=== PATIENT | male | born 1980 | race Caucasian/White ===

== ENCOUNTER → 2019-08-28 | Outpatient (CLI) | payer BC ==
[~2019-08-28] MED LIST: ALB0.5V INH; AZIT-21 PO; CLON1TAB36 PO; HYDR480S10 PO; METH4TAB PO; OXYC10TA7 PO; OXYC80TA39 PO; [UNRECOGNIZED DRUG - CODE] PO
--- NOTE | 2019-08-28 18:38 | Diagnostic Imaging Report ---
PROCEDURE: MR imaging cervical spine without contrast. TECHNIQUE: Multiplanar, multisequence MR imaging of the cervical spine was performed without contrast. INDICATION: Neck and right shoulder pain, occasional right arm numbness. COMPARISON STUDY: MRI of the cervical spine from 2014. FINDINGS: Noncontrast MRI of the cervical spine demonstrate normal signal intensity in the brainstem and spinal cord. Surrounding soft tissues appear normal. No fractures or subluxations are present. Multilevel spondylosis is again identified. The C2-C3 level demonstrates a mild uncovertebral joint hypertrophy on the left with mild facet arthropathy on the left. Mild left foraminal stenosis is stable. The C3-C4 level demonstrates broad-based disc bulge with osteophytic ridging. Mild facet arthropathy is present. Mild/moderate spinal stenosis present. Moderate to severe foraminal stenosis stable. This little worse on the right than the left. C4-C5 level demonstrates mild to moderate broad-based disc bulge with mild facet arthropathy and some osteophytic ridging. Moderate spinal stenosis stable. Moderate to severe foraminal stenosis is present. This is a little worse than that seen at C3-C4. C5-C6 level demonstrates minimal facet arthropathy. There is mild narrowing of the left neural foramina. C6-C7 level demonstrates mild facet arthropathy. There has been development of mild disc bulge and uncovertebral joint hypertrophy with mild to moderate central stenosis and moderate right foraminal stenosis. C7-T1 level appears normal. IMPRESSION: MRI of the cervical spine demonstrates interval worsening of some stenosis at C6-C7 level. The remainder of the spine appears stable. Dictated by: Dictated on workstation # [id number]
== END ==
LOC: RAD 17:37
PROVIDERS: ATTEND Anesthesiology
DX: G89.4 Chronic pain syndrome (principal); M47.812 Spondylosis without myelopathy or radiculopathy, cervical region; M50.10 Cervical disc disorder with radiculopathy, unspecified cervical region; M48.02 Spinal stenosis, cervical region
CPT/HCPCS: 72141

== ENCOUNTER 2019-12-24 05:47 | Outpatient (CLI) | payer BC ==
[~2019-12-24] VITALS: Ht 182.9 cm; Wt 97.7 kg
[2019-12-24] MEDS ORDERED: OXYC10TA7 PO (15:41)
== END 2019-12-24 15:37 | disposition home or self-care (01) ==
LOC: PREOP 05:47
PROVIDERS: ATTEND Surgery
DX: Z01.818 Encounter for other preprocedural examination (principal)

== ENCOUNTER 2020-01-01 06:41 | Day surgery (SDC) | payer BC ==
[2020-01-01] VITALS (7 sets, daily range): BP systolic 104–124; BP diastolic 64–86
[~2020-01-01] VITALS: Ht 182.9 cm; Wt 97.7 kg
[2020-01-01] MEDS ORDERED: MIDAZOLAM 2 MG/2 ML (VERSED) VIAL ONE (06:59)
[2020-01-01] MEDS ORDERED: fentaNYL INJECTION 100 MCG/2 ML AMP ONE ×2 (06:59→07:22)
[2020-01-01] MEDS ORDERED: proPOfol 200 MG/20 ML (DIPRIVAN) VIAL IV ONE (07:03)
[2020-01-01] MEDS ORDERED: DEXAMETHASONE 10 MG/ML (DECADRON) 1 ML VIAL ONE (07:03)
[2020-01-01] MEDS ORDERED: ONDANSETRON 4 MG/2 ML (SDV) Z0FRAN ONE (07:03)
[2020-01-01] MEDS ORDERED: SEVOFLURANE (ULTANE) 15 ML INHAL SOLN ONE ×3 (07:03→08:36)
[2020-01-01] MEDS ORDERED: LIDOCAINE PF 2% 5 ML (XYLOCAINE) VIAL ONE (07:03)
[2020-01-01] MEDS ORDERED: BUP/EPI 0.5% 1:200,000 (SENSORCAINE) 30 ML VIAL ONE (07:18)
[2020-01-01] MEDS ORDERED: ceFAZolin 2 GM IV Premixed 50 ML ONE (07:22)
[2020-01-01] MEDS ORDERED: LACTATED RINGERS 1,000 ML IV PRN (07:25)
[2020-01-01] MEDS ORDERED: fentaNYL INJECTION 100 MCG/2 ML AMP IV ONE (07:30)
[2020-01-01] MEDS ORDERED: ceFAZolin 2 GM/50 ML NS 50 ML IV ONE (07:30)
[2020-01-01] MEDS ORDERED: ceFAZolin 2 GM IV Premixed 50 ML IV ONE (07:45)
--- NOTE | 2020-01-01 07:58 | Progress Note-Pre Operative ---
Pre-Operative Progress Note H&P Reviewed The H&P was reviewed, patient examined and no changes noted. Date Seen by Provider: Jan 01, 2020 Time Seen by Provider: 07:57 Date H&P Reviewed: Jan 01, 2020 Time H&P Reviewed: 07:57 Pre-Operative Diagnosis: blood in stool, hemorrhoids NITHYA AGUERO DO Jan 01, 2020 07:58
[2020-01-01] MEDS ORDERED: PROMETHAZINE INJ 25 MG/ML (PHENERGAN) AMP IVP ONE (08:45)
[2020-01-01] MEDS ORDERED: HYDROmorphone 2 MG/ML VIAL (DILAUDID) IV ONE (08:45)
[2020-01-01] MEDS ORDERED: morphine INJ 10 MG/ML 1ML (SYR OR VIAL) IVP ONE (08:45)
[2020-01-01] MEDS ORDERED: MEPERIDINE (DEMEROL) INJ 50 MG/ML IVP ONE (08:45)
[2020-01-01] MEDS ORDERED: ONDANSETRON 4 MG/2 ML (SDV) Z0FRAN IVP PRN (08:45)
[2020-01-01] MEDS ORDERED: morphine INJ 10 MG/ML 1ML (SYR OR VIAL) ONE (08:46)
--- NOTE | 2020-01-01 09:15 | Anesthesia-General Post-Op ---
General Patient Condition Mental Status/LOC: Same as Preop Cardiovascular: Satisfactory Nausea/Vomiting: Absent Respiratory: Satisfactory Pain: Controlled Complications: Absent Post Op Complications Complications None Follow Up Care/Instructions Patient Instructions None needed. Anesthesia/Patient Condition Patient Condition Patient is doing well, no complaints, stable vital signs, no apparent adverse anesthesia problems. No complications reported per nursing. SYLVIA HENSON CRNA Jan 01, 2020 09:15
--- NOTE | 2020-01-01 09:24 | Progress Note-Post Operative ---
Post-Operative Progess Note Surgeon (s)/Release And Technical Records Clerk (s) Surgeon NITHYA AGUERO DO Release And Technical Records Clerk: na Pre-Operative Diagnosis blood in stool, hemorrhoids Post-Operative Diagnosis left lateral hemorrhoid Procedure & Operative Findings Date of Procedure 01/01/20 Procedure Performed/Findings flex sig and left lateral hemorroidectomy Anesthesia Type gen Estimated Blood Loss Estimated blood loss (mL): min Specimens/Packing Specimens Removed left lateral hemorrhoid NITHYA AGUERO DO Jan 01, 2020 09:24
[2020-01-01] MEDS ORDERED: DOCU-143 PO (09:25)
--- NOTE | 2020-01-01 09:26 | Discharge Inst-Simple/Standard ---
Discharge Inst-Standard Discharge Medications New, Converted or Re-Newed RX: Transmitted to Pharmacy Patient Instructions/Follow Up Plan of Care/Instructions/FU: 2 weeks Theresa Activity as Tolerated: No Discharge Diet: Regular Diet Other Inst to Patient Follow up Appt: Make appointment for 2 week. Instructions: No lifting greater than 10 pounds. No strenuous activity. May shower in 24 hours, no tub bath or soaking. Use incentive spirometer at home as directed. No Smoking Skin/Wound Care: Sitz bath 3 times a day and after bowel movements. Keep the areas clean and dry. Symptoms to Report: Appetite Changes, Extremity Discoloration, Numbness/Tingling, Swelling Incr eased, Bleeding Excessive, Eyesight Changes, Pain Increased, Urine Color Change, Constipation(Persistent), Fever over 101 degree F, Pain/Pressure in chest, Urinating Difficulty, Cough Up/Vomit Blood, Heart Beat Irreg/Pounding, Pain/Pressure in jaw, Vaginal Bleeding Increase, Cramps in feet or legs, Lightheadedness, Pain/Pressure in shoulder, Diarrhea(Persistent), Memory Changes Suddenly, Questions/Concerns, Weight gain consecutive days, Dizziness/Fainting, Nausea/Vomiting, Shortness of Breath, Weight gain over 2 pounds If questions or concerns contact your physician Or seek help at emergency department. NITHYA AGUERO DO Jan 01, 2020 09:26
--- NOTE | 2020-01-03 15:05 | OPERATIVE REPORT ---
DATE OF SERVICE: 01/01/2020 PREOPERATIVE DIAGNOSIS: Blood in stool. POSTOPERATIVE DIAGNOSIS: Left lateral hemorrhoid, internal. PROCEDURE: Flexible sigmoidoscopy, left lateral hemorrhoidectomy. SURGEON: Nithya Cardenas DO ANESTHESIA: General. ESTIMATED BLOOD LOSS: Minimal. COMPLICATIONS: None. INDICATIONS: The patient is a 39-year-old male with a longstanding history of chronic constipation and some blood in stool. He understands risks and benefits of procedure and wished to proceed with procedure. Consent was signed in the chart. DESCRIPTION OF PROCEDURE: The patient was taken to the operating suite, placed in lithotomy position. Timeout was performed. Digital rectal exam was performed noting left lateral hemorrhoid, slight irritation. The colonoscope was inserted in the rectum up through a sigmoid colon and then the scope was then slowly retracted. The prep was adequate. There were no polyps, masses or ulcerations within the sigmoid and rectum, scope was retroflexed noting no other pathology except for a hemorrhoidal tissue. Scope was returned to its normal position, slowly withdrawn until completely removed. At this time, the left lateral hemorrhoid was grasped and slightly retracted and a Harmonic focus was then used to excise the left lateral hemorrhoid complex. Hemostasis was achieved. Local anesthetic was infiltrated in the surrounding tissues and a Gelfoam and Vaseline gauze plug was created to assist with hemostasis and inserted into the anal canal. The patient tolerated procedure well without any complications. He was taken to recovery room in stable condition. Job ID: [id number] DocumentID: [id number] Dictated Date: 01/03/2020 11:42:38 Patent Agent Date: 01/03/2020 15:04:53 Dictated By: NITHYA CARDENAS DO
== END 2020-01-01 10:20 | disposition home or self-care (01) ==
LOC: SDC 06:41
PROVIDERS: ATTEND Surgery
DX: K64.8 Other hemorrhoids (principal); M25.511 Pain in right shoulder; M25.512 Pain in left shoulder; G89.29 Other chronic pain; F32.9 Major depressive disorder, single episode, unspecified; G40.909 Epilepsy, unspecified, not intractable, without status epilepticus; F41.9 Anxiety disorder, unspecified; M10.9 Gout, unspecified; M50.30 Other cervical disc degeneration, unspecified cervical region; Z87.891 Personal history of nicotine dependence; Z79.899 Other long term (current) drug therapy
CPT/HCPCS: 87081

== ENCOUNTER 2023-06-12 14:52 | Emergency (ER) | payer OTHER, BC ==
[~2023-06-12] VITALS: Ht 182 cm; Wt 84.0 kg
[~2023-06-12 14:52] MED LIST changes: +DOCU-143 PO
[2023-06-12] MEDS ORDERED: NS IV 1000 ML 1,000 ML IV STA (15:05)
--- NOTE | 2023-06-12 15:11 | ED General ---
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 PT STATES ALSO LOST EARBUD. PT MAIL TRUCK PARKED NO WHERE NEAR WHERE IT SUPPOSE TO BE. PT FSBS 167 FOR EMS. PT WAS CONFUSED WHEN WENT INTO [facility] WHERE EMS WAS DISPATCHED. PT TALKING VERY FAST. PT HAS IV NS INFUSING IN L AC #18 BY EMS. APPROX 800CC INFUSED. PT STATES HAS CHRONIC PAIN IN R SHOULDER. 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 Patient states over the past few days he has had some increased weakness. States yesterday he attempted to drink near 2 gallons of water. States he felt bloated. Ate some candy yesterday and vomited. Started feeling weak and fatigued yesterday with some leg cramping. Patient felt a little better today but was still somewhat weak and fatigued. Patient states he lost his vehicle on route and ended up showing up at [facility] complaining that he was overheated. Patient did not have shoes on his feet at that time. He is unclear when he lost his shoes. He states with his history of ADHD he tries ways to keep his mind from "wandering". He is unclear how lost his shoes as he was trying to stay on task. According to EMS patient appeared to be confused and altered and looked diaphoretic. Patient cannot recall where his truck was parked when he showed up at [facility]. Patient did receive a liter fluid by EMS. On arrival alert and orient x4. Patient reports chronic pain in his shoulders. Started Adderall 5 days ago but has not taken the medication over the past few days. Reports some decreased urine output. Has been drinking water today and at bedside. Patient denies headache, dizziness, visual changes, chest pain, cough, shortness of breath, diarrhea. Allergies and Home Medications Allergies Coded Allergies: No Known Drug Allergies (Unverified , 05/22/10) Patient Home Medication List Home Medication List Reviewed: Yes Docusate Sodium (Colace) 100 Mg Capsule, 100 MG PO BID Prescribed by: NITHYA AGUERO on 01/01/20 0925 Oxycodone HCl (Oxycodone HCl) 10 Mg Tablet, 10 MG PO BID, (Reported) Entered as Reported by: BOO JOSHI on 12/24/19 1541 Review of Systems Review of Systems Constitutional: diaphoresis; No malaise, No weakness EENTM: No ear pain, No blurred vision, No mouth pain, No mouth swelling Respiratory: No cough, No dyspnea on exertion Cardiovascular: chest pain Gastrointestinal: No abdominal pain, No diarrhea, No nausea; vomiting Genitourinary: No decreased output, No discharge Musculoskeletal: No joint pain Psychiatric/Neurological: Other (Disoriented) All Other Systems Reviewed Negative Unless Noted: Yes Past Gpgqebz-Fimcaj-Aecgwz Hx Seasonal Allergies Seasonal Allergies: No Past Medical History Surgeries: Yes (RIGHT SHOULDER X3, LEFT SHOULDER X1, CARPAL TUNNEL,hernia x2 ) Respiratory: No Currently Using CPAP: No Currently Using BIPAP: No Cardiac: No Neurological: No Genitourinary: No Gastrointestinal: Yes (OCC CONSTIPATION) Hemorrhoids Musculoskeletal: Yes (SHOULDER) Arthritis Endocrine: No HEENT: No Cancer: No Psychosocial: No Integumentary: No Blood Disorders: No Physical Exam Vital Signs Vital Signs - First Documented 06/12/23 14:52 Temp 37.6 Pulse 89 Resp 18 B/P (MAP) 141/96 (111) Pulse Ox 97 O2 Delivery Room Air Capillary Refill : Less Than 3 Seconds Height, Weight, BMI Height: 6'" Weight: 225lbs. oz. [id number]; 25.00 BMI Method: General Appearance: No Apparent Distress, WD/WN Eyes: Bilateral Eye Normal Inspection, Bilateral Eye PERRL, Bilateral Eye EOMI HEENT: PERRL/EOMI, TMs Normal, Normal ENT Inspection, Pharynx Normal Neck: Full Range of Motion, Normal Inspection, Non Tender, Supple Respiratory: Chest Non Tender, Lungs Clear, Normal Breath Sounds, No Accessory Muscle Use, No Respiratory Distress Cardiovascular: Regular Rate, Rhythm, No Edema, No Gallop, No JVD, No Murmur Gastrointestinal: Normal Bowel Sounds, No Organomegaly, No Pulsatile Mass, Non Tender Back: Normal Inspection, No CVA Tenderness, No Vertebral Tenderness Extremity: Normal Capillary Refill, Normal Inspection, Normal Range of Motion, Non Tender Neurologic/Psychiatric: Alert, Oriented x3, No Motor/Sensory Deficits, Normal Mood/Affect, clinical associate II-XII Norm as Tested Skin: Normal Color, Warm/Dry Progress/Results/Core Measures Suspected Sepsis SIRS Temperature: Pulse: 89 Respiratory Rate: 18 Laboratory Tests 06/12/23 14:56: White Blood Count 7.2 Blood Pressure 141 /96 Mean: 111 Laboratory Tests 06/12/23 14:56: Creatinine 1.15, Platelet Count 235, Total Bilirubin 2.3H Results/Orders Lab Results Laboratory Tests Test 06/12/23 14:56 06/12/23 15:50 Range/Units White Blood Count 7.2 4.3-11.0 10^3/uL Red Blood Count 4.54 4.30-5.52 10^6/uL Hemoglobin 13.8 13.3-17.7 g/dL Hematocrit 40 40-54 % Mean Corpuscular Volume 88 80-99 fL Mean Corpuscular Hemoglobin 30 25-34 pg Mean Corpuscular Hemoglobin Concent 35 32-36 g/dL Red Cell Distribution Width 11.9 10.0-14.5 % Platelet Count 235 130-400 10^3/uL Mean Platelet Volume 10.3 9.0-12.2 fL Immature Granulocyte % (Auto) 0 % Neutrophils (%) (Auto) 67 42-75 % Lymphocytes (%) (Auto) 21 12-44 % Monocytes (%) (Auto) 12 0-12 % Eosinophils (%) (Auto) 0 0-10 % Basophils (%) (Auto) 0 0-10 % Neutrophils # (Auto) 4.8 1.8-7.8 X 10^3 Lymphocytes # (Auto) 1.5 1.0-4.0 X 10^3 Monocytes # (Auto) 0.9 0.0-1.0 X 10^3 Eosinophils # (Auto) 0.0 0.0-0.3 10^3/uL Basophils # (Auto) 0.0 0.0-0.1 10^3/uL Immature Granulocyte # (Auto) 0.0 0.0-0.1 10^3/uL Sodium Level 139 135-145 MMOL/L Potassium Level 3.4 L 3.6-5.0 MMOL/L Chloride Level 106 98-107 MMOL/L Carbon Dioxide Level 21 21-32 MMOL/L Anion Gap 12 5-14 MMOL/L Blood Urea Nitrogen 15 7-18 MG/DL Creatinine 1.15 0.60-1.30 MG/DL Estimat Glomerular Filtration Rate 82 BUN/Creatinine Ratio 13 Glucose Level 132 H 70-105 MG/DL Calcium Level 8.9 8.5-10.1 MG/DL Corrected Calcium 8.7 8.5-10.1 MG/DL Magnesium Level 1.9 1.6-2.4 MG/DL Total Bilirubin 2.3 H 0.1-1.0 MG/DL Aspartate Amino Transf (AST/SGOT) 28 5-34 U/L Alanine Aminotransferase (ALT/SGPT) 22 0-55 U/L Alkaline Phosphatase 55 40-136 U/L Total Creatine Kinase 580 H 30-200 U/L Total Protein 6.9 6.4-8.2 GM/DL Albumin 4.3 3.2-4.5 GM/DL Lipase 12 8-78 U/L Urine Color BROWN H Urine Clarity CLOUDY Urine pH 6.5 5-9 Urine Specific Sandwich >=1.030 1.016-1.022 Urine Protein 2+ H NEGATIVE Urine Glucose (UA) NEGATIVE NEGATIVE Urine Ketones NEGATIVE NEGATIVE Urine Nitrite NEGATIVE NEGATIVE Urine Bilirubin 1+ H NEGATIVE Urine Urobilinogen 0.2 < = 1.0 MG/DL Urine Leukocyte Esterase NEGATIVE NEGATIVE Urine RBC (Auto) TRACE H NEGATIVE Urine RBC RARE /HPF Urine WBC 2-5 /HPF Urine Squamous Epithelial Cells RARE /HPF Urine Crystals PRESENT H /LPF Urine Amorphous Sediment FEW BUCK URATES H /LPF Urine Bacteria FEW H /HPF Urine Casts PRESENT /LPF Urine Hyaline Casts 10-25 H /LPF Urine Mucus NEGATIVE /LPF Urine Culture Indicated YES My Orders Orders - BEBE HUI Cbc With Automated Diff (06/12/23 15:05) Comprehensive Metabolic Panel (06/12/23 15:05) Lipase (06/12/23 15:05) Magnesium (06/12/23 15:05) Ua Culture If Indicated (06/12/23 15:05) Creatine Kinase (06/12/23 15:05) Ns Iv 1000 Ml (Sodium Chloride 0.9%) (06/12/23 15:05) Ekg Tracing (06/12/23 15:05) Urine Culture (06/12/23 15:50) Vital Signs/I&O 06/12/23 06/12/23 06/12/23 14:52 16:20 16:28 Temp 37.6 36.7 36.7 Pulse 89 71 Resp 18 18 B/P (MAP) 141/96 (111) 137/90 Pulse Ox 97 97 O2 Delivery Room Air Room Air Capillary Refill : Less Than 3 Seconds Blood Pressure Mean: 111 ECG Comment Sinus rhythm with sinus arrhythmia, 86 bpm, QRS duration 83 MS, QTc 394 MS. Departure Communication (PCP) Reviewed previous ER visits, H&P, lab testing. Differential diagnosis, heat exhaustion, rhabdomyolysis, electrolyte abnormality, arrhythmia, heatstroke. On arrival alert and orient x4. GCS of 15. Vital signs stable. Afebrile. No evidence of confusions. Does not appear to be altered. 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 Reports that he has been feeling weak and fatigue over the past 2 days.. Started on Adderall 5 days ago but has not taken Adderall for past 2 days. History of PTSD. Patient was [facility] Unclear where his shoes were. Patient states its not uncommon that he may forget things as he tries to keep his mind busy focusing on his task because of his ADHD. Patient Was confused according to EMS by fire who was initially on the scene. Patient states he is feeling much better as he is in a cool environment. Attempted to stay hydrated over the past few days. Vomited once yesterday. States symptoms were worse yesterday. Patient was found to be diaphoretic by EMS. Generalized lab work with CPK, urinalysis, lipase chemistry and hematology was ordered. CBC, chemistry was grossly unremarkable. CK was 580. Did receive 2 L of normal saline here in the ED. EKG was obtained which showed sinus rhythm with sinus arrhythmia. No ST elevation or depression. Patient denies of any chest pain or shortness of breath. He is not short of breath or has any evidence of URI symptoms. Patient remained stable during his stay. Urinalysis concern for dehydration. No evidence of infection. Due to the mild rhabdo suggest a 3 L of fluid. Patient was eager to leave and did not want to wait to receive a another liter of fluid. States he needs a few days at home of rest which I do agree. I did give patient additional 3 days off starting today. Recommend hydration with Gatorade and water. Recommend getting out of the heat. Follow-up with your PCP in 2 to 3 days for reevaluation. If any worsening symptoms such as vomiting, body pains or cramping he will need to return back to ED. Concern for heat exhaustion. Symptoms could be exacerbated due to his Adderall that he started 5 days ago. Impression Primary Impression: Heat exhaustion Additional Impression: Rhabdomyolysis Disposition: HOME, SELF-CARE Condition: Stable Departure-Patient Inst. Decision time for Depature: 16:19 Referrals: MARGE BECKHAM MD (PCP/Family) Primary Care Physician Patient Instructions: Heat Exhaustion and Heat Stroke (DC) Add. Discharge Instructions: Need to follow-up with primary care physician in 2 to 3 days for reevaluation. Recommend staying hydrated drink plenty fluids rest at home. All discharge instructions reviewed with patient and/or family. Voiced understanding. Work/School Note: Work Release Form Date Seen in the Emergency Department: Jun 12, 2023 Return to Work: Jun 17, 2023 BEBE HUI Jun 12, 2023 15:11
[2023-06-12 15:12] LABS: BASOPHILS % (AUTO) 0 % (0-10); EOSINOPHILS % (AUTO) 0 % (0-10); HEMATOCRIT 40 % (40-54); HEMOGLOBIN 13.8 g/dL (13.3-17.7); LYMPHOCYTES # (AUTO) 1.5 X 10^3 (1.0-4.0); LYMPHOCYTES % (AUTO) 21 % (12-44); MEAN CORPUSCULAR HEMOGLOBIN 30 pg (25-34); MEAN CORPUSCULAR HGB CONC 35 g/dL (32-36); MEAN CORPUSCULAR VOLUME 88 fL (80-99); MEAN PLATELET VOLUME 10.3 fL (9.0-12.2); MONOCYTES # (AUTO) 0.9 X 10^3 (0.0-1.0); MONOCYTES % (AUTO) 12 % (0-12); NEUTROPHILS # (AUTO) 4.8 X 10^3 (1.8-7.8); NEUTROPHILS % (AUTO) 67 % (42-75); PLATELET COUNT 235 10^3/uL (130-400); WHITE BLOOD COUNT 7.2 10^3/uL (4.3-11.0)
[2023-06-12 15:17] LABS: ALBUMIN 4.3 GM/DL (3.2-4.5); POTASSIUM 3.4 MMOL/L (3.6-5.0)
[2023-06-12 15:18] LABS: CALCIUM 8.9 MG/DL (8.5-10.1)
[2023-06-12 15:20] LABS: TOTAL PROTEIN 6.9 GM/DL (6.4-8.2)
[2023-06-12 15:21] LABS: BILIRUBIN,TOTAL 2.3 MG/DL (0.1-1.0)
[2023-06-12 15:23] LABS: CREATININE SERUM 1.15 MG/DL (0.60-1.30)
[2023-06-12 15:26] LABS: MAGNESIUM 1.9 MG/DL (1.6-2.4)
[2023-06-12 16:10] LABS: CLARITY,URINE CLOUDY; COLOR,URINE BROWN; PH,URINE 6.5 (5-9)
[2023-06-12 16:11] LABS: BILIRUBIN,URINE 1+ (NEGATIVE); GLUCOSE, URINE (UA) NEGATIVE (NEGATIVE); KETONES,URINE NEGATIVE (NEGATIVE); LEUKOCYTE ESTERASE ,URINE NEGATIVE (NEGATIVE); NITRITE,URINE NEGATIVE (NEGATIVE); PROTEIN,URINE 2+ (NEGATIVE)
[2023-06-12 16:18] LABS: AMORPHOUS SEDIMENT,UR FEW AMOR URATES /LPF; BACTERIA,URINE FEW /HPF; RBC,URINE RARE /HPF; SQUAMOUS EPITHELIAL CELL,UR RARE /HPF
[2023-06-12 16:28] VITALS: BP 137/90
== END 2023-06-12 16:29 | disposition home or self-care (01) ==
LOC: EDUNIT# 14:54 → ER 14:56
DX: T67.5XXA Heat exhaustion, unspecified, initial encounter (principal); M62.82 Rhabdomyolysis; F90.9 Attention-deficit hyperactivity disorder, unspecified type; X30.XXXA Exposure to excessive natural heat, initial encounter
CPT/HCPCS: 36415; 80053; 81000; 82550; 83690; 83735; 85025; 87088; 93005